=== PATIENT | female | born 1980 | race American Indian/Alaskan Native ===

== ENCOUNTER 2016-11-26 06:12 | Day surgery (SDC) | payer BC ==
[2016-11-26] MEDS ORDERED: DIPRIVAN 10 MG/ML IV ONE (07:39)
--- NOTE | 2016-11-26 07:47 | Discharge Summary ---
Providers - Providers Date of discharge: 11/26/16 Attending physician: PAULO VALDEZ Primary care physician: JOE ARECHIGA Hospitalization Condition: Good Procedures: egd Disposition: DC- TO HOME OR SELFCARE Core Measure Documentation - Palliative Care Palliative Care/ Comfort Measures: Not Applicable - Core Measures Any of the following diagnoses?: none Exam - Physical Exam Narrative exam: unchanged from pre-op - Constitutional Vitals: Temp Pulse Resp BP Pulse Ox 98.5 F 57 L 15 114/62 98 11/26/16 07:31 11/26/16 07:31 11/26/16 07:31 11/26/16 07:31 11/26/16 07:31 Plan Activity: no restrictions Diet: regular (return for bariatric surgery) Follow up with: JOE ARECHIGA MD [Primary Care Provider] - 7 Days
--- NOTE | 2016-11-26 07:55 | Operative Report ---
Operative Report Operative Report: OPERATIVE REPORT - EGD DATE 11/26/16 SURGERY: Upper endoscopy. SURGEON: Bo Preston M.D. ION EXCHANGE OPERATOR: n/a PRE OP DX:dyspepsia POST OP DX:small hiatal hernia TYPE OF ANESTHESIA: MAC. ESTIMATED BLOOD LOSS: None. COMPLICATIONS: None. SPECIMENS REMOVED: None. FINDINGS: 1. Small hiatal hernia. 2. Otherwise, normal esophagus, stomach and first portion of duodenum. INDICATIONS:INDICATION FOR PROCEDURE: Patient is a 36-year-old female with a long history of morbid obesity. She is planned to have a weight loss procedure and is here for preoperative planning EGD. PROCEDURE DETAILS: After consent was reviewed, patient was taken back to the operating room where patient was placed in the left lateral decubitus position and a bite block was placed in the mouth. After a time-out was called, MAC anesthesia was initiated. I then passed the endoscope into her oropharynx, into her esophagus, visualized the entire esophagus, which was all within normal limits. I then visualized the stomach and the first portion of the duodenum and there were no abnormalities I could clearly visualize. I then retroflexed the scope in the stomach and visualized the hiatus and I could see a small hiatal hernia. I then desufflated the stomach and removed the endoscope. Patient tolerated procedure well and was transferred to recovery room in good and stable condition.
[2016-11-26] MEDS ORDERED: NACL 0.9% 1000 ML 1,000 ML IV SCH (08:00)
--- NOTE | 2016-11-26 08:09 | Anesthesia Day of Surgery ---
Anesthesia Day of Surgery - Day of Surgery Patient Examined: Yes Patient H&P Reviewed: Yes Patient is NPO: Yes
--- NOTE | 2016-11-26 08:09 | Anesthesia Consultation ---
Anesthesia Consult and Med Hx Date of service: 11/26/16 - Airway Anesthetic Teeth Evaluation: Good ROM Head & Neck: Adequate Mental/Hyoid Distance: Adequate Mallampati Class: Class II Intubation Access Assessment: Probably Good - Pulmonary Exam CTA: Yes - Cardiac Exam Cardiac Exam: RRR - Pre-Operative Health Status ASA Pre-Surgery Classification: ASA3 Proposed Anesthetic Plan: MAC - Pulmonary Hx Smoking: No Hx Asthma: Yes (inhaler prn, last used 1 y ago, ) Hx Pneumonia: Yes (hospitalized in past 6x time) - Cardiovascular System Hx Hypertension: No Hx Heart Attack/AMI: No - Central Nervous System Hx Seizures: No CVA: No - Endocrine Hx Non-Insulin Dependent Diabetes: No - Hematic Hx Anemia: Yes (iron infusion) - Other Systems Hx Obesity: Yes - Additional Comments Anesthesia Medical History Comments: NAC
[2016-11-26 08:24] VITALS: BP 139/77
--- NOTE | 2016-11-27 10:22 | Post Anesthesia Evaluation ---
- Post Anesthesia Evaluation Patient Participated: Yes Airway Patent: Yes Stable Respiratory Function: Yes Nausea/Vomiting: No Temp > 96.8F: Yes Pain Manageable: Yes Adequeate Hydration: Yes Anesthesia Complications: No Block Receding Appropriately: Not Applicable Patient on Ventilator: No
== END 2016-11-26 06:13 | disposition home or self-care (01) ==
LOC: GIO 06:12
PROVIDERS: ATTEND Surgery
DX: K44.9 Diaphragmatic hernia without obstruction or gangrene (principal); K21.9 Gastro-esophageal reflux disease without esophagitis; F32.9 Major depressive disorder, single episode, unspecified; J45.909 Unspecified asthma, uncomplicated; G43.909 Migraine, unspecified, not intractable, without status migrainosus; F42.9 Obsessive-compulsive disorder, unspecified; D64.9 Anemia, unspecified; E66.01 Morbid (severe) obesity due to excess calories; Z68.41 Body mass index [BMI] 40.0-44.9, adult; Z98.890 Other specified postprocedural states; Z87.01 Personal history of pneumonia (recurrent)
CPT/HCPCS: 43235; 81025; J2704; J7030